=== PATIENT | female | born 1930 | race Caucasian/White ===

== ENCOUNTER 2016-10-26 08:32 | Inpatient (IN) ==
[2016-10-26] MEDS ORDERED: LIDOCAINE 1%/EPI INJ 20 ML VIAL ONE ×2 (08:44→08:51)
[2016-10-26] MEDS ORDERED: ONDANSETRON 4 MG/2 ML VIAL ONE (09:18)
--- NOTE | 2016-10-26 09:28 | Emergency Department Note ---
Narda Young Hilary, am scribing for, and in the presence of, Brad Villavicencio MD 09: 03. Maye Young James D, MD, personally performed the services described in this documentation, ascribed by Keena Laboy in my presence, and it is both accurate and complete 923 . Arrival - Arrival Chief Complaint: Fall ED Nursing Triage Note: c/o fall with left forehead avulsion that happened today. estimated loss of 1-2L of blood. given 200ml NS bolus per ems Mode of Arrival: Stretcher Limitations: No Limitations Source: Patient, Family (Son), EMS, RN Notes Reviewed Time Seen by Provider: 10/26/16 08:38 - History of Present Illness HPI Narrative: Pt is a 86y/o white female brought into the ED with c/o a fall with left forehead avulsion which happened sometime lastnight or this morning. Pts son states that he woke up at 0700 and found blood in the bathroom trailing back to her bedroom where he found her bleeding in her bed. EMS estimates that she lost 1-2L of blood and she was given 200mL NS bolus in EMS. Pt confirms that her neck and back hurt and she thinks she fell in the hallway. Pt has a history of falling and her son states that she has been in the ED 3 times in 2 years for falls like this. Onset (ago): hour(s) Consistency: constant Severity: severe Severity scale (1-10): 6 Allergies/Adverse Reactions: Allergies Allergy/AdvReac Type Severity Reaction Status Date / Time No Known Allergies Allergy Verified 02/05/16 13:56 Home Medications: Home Medications Medication Instructions Recorded Confirmed Type Benztropine Tab [Cogentin Tab] 1 mg PO QPM 11/24/14 10/26/16 History Calcium Carbonate [Calcium] 1,500 mg PO DAILY 11/24/14 10/26/16 History Fluoxetine HCl 20 mg PO QAM 11/24/14 10/26/16 History Glucosamine 500 mg PO BID 11/24/14 10/26/16 History Haloperidol 2 mg PO BID 11/24/14 10/26/16 History Hydrochlorothiazide 12.5 mg PO QAM 11/24/14 10/26/16 History Indapamide [Lozol] 2.5 mg PO QAM 11/24/14 10/26/16 History Multivitamin [Multivitamins] 1 each PO DAILY 11/24/14 10/26/16 History [place]-3 Fatty Acids [Fish Oil] 300 mg PO BID 11/24/14 10/26/16 History Potassium Chloride [Klor-Con M10] 10 meq PO BID 11/24/14 10/26/16 History cloNIDine HCl [Clonidine HCl] 0.1 mg PO BID 11/24/14 10/26/16 History dilTIAZem HCl [Diltiazem 24Hr Cd] 300 mg PO BID 11/24/14 10/26/16 History hydrOXYzine HCL TAB [Atarax Tab] 25 mg PO BID 11/24/14 10/26/16 History Review of System - Review of System 12 point system: reviewed and no additional remarkable complaints except as stated - Review of System Constitutional: Absent: fever Musculoskeletal: Present: back pain, neck pain, upper back pain. Absent: lower back pain Skin: Present: other (Left temporal lobe laceration) Medical,Surgical,& Family Hx - Medical History Cardio: History of: Hypertension Psychological: History of: Bipolar Disorder, Schizophrenia - Social History Smoking Status: Never smoker Frequency of Alcohol Use: None Type of Drug Use: None Exam Physical Examination: GENERAL: This is a well-nourished, well-developed female in no apparent distress. VITAL SIGNS: Temperature: 97.0 Pulse: 89 Respiratory: 18 Blood Pressure: 114/60 O2SAT: 98 HEENT: Patient has a 15 cm laceration involving the left forehead and frontal scalp. Pupils are equally round and reactive to light. Extraocular movement are intact. Oropharynx is benign with moist mucous membranes. NECK: Neck is soft and supple without tenderness. There are no masses. There is no lymphadenopathy. LUNGS: Lungs are clear to auscultation bilaterally. Chest rises symmetrically. There is no chest wall tenderness. CV: Heart is regular rate and rhythm without murmurs, rubs, or gallops. ABDOMEN:Abdomen is soft, non-tender to palpation. There are no abnormal masses palpated. There is no organomegaly. Bowel sounds are present and active. SKIN: Skin is warm and dry. No rash. EXTREMITIES: Patient has full range of motion without tenderness. There is no pedal edema. NEUROLOGIC: Awake, alert, and oriented x4. Cranial nerves II through XII are grossly intact. There are no motorsensory deficits. PSYCHIATRIC: Normal affect. Normal mood. Vital Signs: Vital Signs Temperature 97.0 F L 10/26/16 08:47 Pulse Rate 89 10/26/16 08:47 Respiratory Rate 18 10/26/16 08:47 Blood Pressure 114/60 10/26/16 08:47 O2 Sat by Pulse Oximetry 98 10/26/16 08:47 Course - Consultations Consultation #1: Discussed with Dr. damico. He will see the patient in the emergency department. Time: 11:13 Consultation #2: Discussed with Dr. Cruz. He will admit the patient for observation and repeat H&H. Patient may need to undergo transfusion due to large volume of blood lost. Initial orders written for him. He will assume care upon patient' s arrival to the [facility]. Time: 11:13 Procedures - Laceration Laceration 1 Site: face Side (If applicable): left Size (cm): 10 Description: flap Depth: involves muscle layer Local Anesthetic: lidocaine 1%, with epi Amount of Anesthesia Used (mL): 10 Pre-repair: wound explored, wound cleansed Skin layer closed with: nylon Size: 4-0 Number of sutures: 13 Technique: simple, interrupted Subcutaneous layer closed with: vicryl Size: 3-0 Number of sutures: 4 (Hemostasis obtained following ligation of arterial bleed at the most lateral edge of wound.) Technique: simple, interrupted Muscle layer closed with: vicryl Laceration 2 Site: scalp Side (If applicable): left Size (cm): 5 Description: flap Depth: simple, single layer Local Anesthetic: lidocaine 1%, with epi Amount of Anesthesia Used (mL): 6 Pre-repair: wound explored Skin layer closed with: nylon Size: 3-0 Results - Labs CBC & BMP: 10/26/16 09:11 10/26/16 09:11 Lab Results: I have reviewed the patients labs Labs: Laboratory Tests 10/26/16 09:11 WBC 20.6 H RBC 3.53 L Hgb 10.8 L Hct 32.0 L Neut % (Auto) 76.5 H Lymph % (Auto) 18.2 L Neut # (Auto) 15.7 H Laboratory Tests 10/26/16 10/26/16 09:11 09:11 Segmented Neutrophils 89 H Lymphocytes 10 L Monocytes 1 L Sodium 138 Potassium 3.1 L Glucose 249 H - Diagnostic Findings Procedure: CT: image reviewed by me (CT head: No acute intracranial lesion or hemorrhage. Cerebral atrophy is present. CT scan of the cervical spine: No evidence of fracture or subluxation. Multilevel DDD is present. CT of the thoracic spine: Multilevel DDD, no fracture or subluxation. CT of the lumbosacral spine: Old compression fractures of L1 and L3, L4. Multilevel DDD) Disposition Clinical Impression: Fall at home, Complex laceration of face, Scalp laceration, Anemia, Multilevel DDD of spine Case discussed with: patient, patient's family Disposition: Still a Patient Condition: Stable
[2016-10-26 09:33] LABS: Basophils # 0.1 10*3/uL (0.0-0.2); Basophils % 0.3 % (0.0-0.8); Eosinophils % 0.2 % (0.00-10.9); Hemoglobin 10.8 GM/DL (12.0-16.0); Immature Granulocytes % 0.9 %; Immature Granulocytes Absolute 0.19 #; Lymphocytes # 3.7 10*3/uL (1.4-4.0); Lymphocytes % 18.2 % (21.3-54.2); Mean Corpuscular HGB Conc 33.8 GM/DL (32-36); Mean Corpuscular Hemoglobin 31 PG (27-34); Mean Corpuscular Volume 90.7 FL (87-102); Mean Platelet Volume 10.1 FL (9.6-12.0); Monocytes # 0.8 10*3/uL (0.11-0.8); Monocytes % 3.9 % (1.7-12.7); Neutrophils # 15.7 10*3/uL (1.4-7.4); Neutrophils % 76.5 % (38.7-73.9); Platelet Count 312 T/CUMM (130-400); Red Blood Count 3.53 MC/CUMM (3.8-5.5); Red Cell Distribution Width 13.5 % (9.3-17.3); White Blood Count 20.6 T/CUMM (4-12)
[2016-10-26] MEDS ORDERED: ONDANSETRON 4 MG/2 ML VIAL IV STA (09:36)
[2016-10-26] MEDS ORDERED: SODIUM CHLORIDE 0.9% 1,000 ML IV STA (09:37)
[2016-10-26 09:51] LABS: Lymphocytes 10 % (20-55); Segmented Neutrophils 89 % (50-85); Total Cells Counted 100
[2016-10-26 09:52] LABS: Hypochromasia Slight; Macrocytosis 1+; Osmolality,Calculated 282.7 MOS/KG (273-304); Potassium 3.1 MMOL/L (3.5-5.1)
--- NOTE | 2016-10-26 10:25 | CT Report ---
History: Head injury related to fall. Left forehead and avulsion Date: 10/26/2016 Study: CT head without contrast Comparison exam: CT head February 05, [address] sections were obtained through the head without IV contrast. This CT exam was performed using one or more the following dose reduction techniques: Automated exposure control, adjustment of the MA and/or KV according to patient size, or use of iterative reconstruction technique. There is no acute abnormality of the bony calvarium. There is laceration of the left frontal scalp soft tissues with associated soft tissue emphysema. There is some mild diffuse cerebral and cerebellar atrophy. The ventricles are midline in position without evidence of hydrocephalus. There is no brain mass or parenchymal hemorrhage. There is no gross CT evidence of acute cortical stroke. There is no acute extra-axial hematoma. There is some ill-defined low density in the periventricular white matter without mass effect compatible with changes of small vessel disease. There is an area of chronic lacunar ischemia involving the anterior aspect of the right thalamus and genu of the right internal capsule. There is chronic lacunar infarction in the posterior right putamen. There is prominent distal carotid artery calcification. Impression: Acute soft tissue injury of the left frontal scalp with laceration. No acute intracranial process. Chronic ischemic changes. Cerebral atrophy and cerebellar atrophy PROCEDURE INTERPRETED AT [facility] DEPARTMENT OF RADIOLOGY Final Report Signed by: Dr. Alma Orellana
--- NOTE | 2016-10-26 10:32 | CT Report ---
History: Neck pain after fall Date: 10/26/2016 Study: CT cervical spine without contrast Comparison exam: Multiple studies, including the most recent CT cervical spine of February 05, 2016 There is chronic mild 2 to 3 mm anterior subluxation of C3 with respect to C4, unchanged from the previous studies. There is no acute fracture or new area of subluxation. There is moderate prominent degenerative disc narrowing at C3-C4 through C6-C7, with mild to moderate anterior spondylosis. There is scattered prominent facet hypertrophy. There is mild narrowing of the spinal canal at C3-C4 related to mild posterior diffuse bulging disc and osteophyte; there is moderate to prominent left and [id number] right neural foraminal narrowing at this same level related to uncovertebral and facet hypertrophy. There is mild narrowing of the spinal canal related to mild posterior bulging disc and osteophyte at C6-C7; there is mild to moderate right greater than left neural foraminal narrowing related to uncovertebral and facet hypertrophy at this level. There is no gross disc extrusion. 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 Impression: No acute bony abnormality. Degenerative disc disease. Mild chronic subluxation at C3-C4 which is unchanged from the most recent comparison exam. Substernal extension of goiter PROCEDURE INTERPRETED AT [facility] DEPARTMENT OF RADIOLOGY Final Report Signed by: Dr. Alma Orellana
[2016-10-26] MEDS ORDERED: POTASSIUM CHLORIDE 20 MEQ TABLET PO STA (10:36)
--- NOTE | 2016-10-26 10:40 | CT Report ---
History: Back pain after fall Date: 10/26/2016 Study: CT thoracic spine without IV contrast Comparison exam: No previous thoracic level CT Thin spiral CT sections were obtained through the thoracic spine without IV contrast. Multiplanar reconstruction images are also evaluated. This CT exam was performed using one or more the following dose reduction techniques: Automated exposure control, adjustment of the MA and/or KV according to patient size, or use of iterative reconstruction technique. There is no definite acute thoracic fracture. There is mild central depression of the superior endplates of the T3-T9 vertebrae which is likely chronic. There are scattered mild to moderate thoracic spondylosis and mild to moderate thoracic degenerative disc narrowing. Please refer to the CT lumbar spine exam from the same day for information regarding a compression fracture involving the L1 vertebral body. There is no gross thoracic level disc extrusion or high-grade spinal stenosis. There is evidence of substernal extension of the right lobe of thyroid, with extension of goiter dorsal and right lateral to the trachea at the level of aortic arch. Impression: No acute thoracic fracture. Degenerative disc disease of the thoracic spine. Chronic central depression of the superior endplates of numerous thoracic vertebrae. Please refer to the CT lumbar spine from the same day for information regarding L1 compression fracture PROCEDURE INTERPRETED AT [facility] DEPARTMENT OF RADIOLOGY Final Report Signed by: Dr. Alma Orellana
--- NOTE | 2016-10-26 10:50 | CT Report ---
History: Back pain after fall Date: 10/26/2016 Study: CT lumbar spine without contrast Comparison exam: No previous CT or x-ray of the lumbar spine available Thin spiral CT sections were obtained through the lumbar spine without IV contrast. Multiplanar reconstruction images are also evaluated. This CT exam was performed using one or more the following dose reduction techniques: Automated exposure control, adjustment of the MA and/or KV according to patient size, or use of iterative reconstruction technique. There is moderate compression of the L1, L3, and L4 vertebral bodies of uncertain chronicity, with retropulsion measuring 3 to 4 mm at each of these levels. There is no spondylolisthesis. There are scattered moderate spondylosis. There is moderate degenerative disc narrowing with vacuum disc phenomena at L4-L5. There is prominent disc narrowing with mild vacuum disc phenomena at L5-S1. There is mild spinal stenosis at L2-L3 related to mild posterior bulging disc. There is moderate to severe spinal stenosis at L3-L4 related to posterior mild diffuse disc bulging as well as moderate ligament flavum and facet hypertrophy. There is severe narrowing of the spinal canal at L4-L5 related to moderate posterior diffuse disc bulging as well as prominent hypertrophic changes of the posterior elements. There is mild spinal canal narrowing at L5-S1 related to mild posterior diffuse bulging discs and osteophyte as well as moderate ligamentum flavum and facet hypertrophy. Impression: Compression fractures of L1, L3, and L4 with mild 3 to 4 mm retropulsion at each of these levels. These could represent acute or recent compression fractures, though the chronicity cannot be stated with certainty. Follow-up outpatient MRI could provide clarification regarding the chronicity of these fractures, as felt clinically necessary. Multilevel spinal stenosis related to diffuse disc bulging and hypertrophic changes of the posterior elements, details above. Degenerative disc disease PROCEDURE INTERPRETED AT [facility] DEPARTMENT OF RADIOLOGY Final Report Signed by: Dr. Alma Orellana
--- NOTE | 2016-10-26 11:36 | General Surgery Consult Note ---
Assessment and Plan (1) Fall at home Status: Acute Assessment and plan: This patient had a scalp laceration that was closed in the ER. She does appear pale but her hemoglobin is 10.8 and she is hemodynamically normal. This probably does not represent her true hemoglobin as it will trend down over time all her body equilibrates. I recommend repeating hemoglobin again tomorrow and making sure she has a type and screen in case she needs a transfusion. I will leave this up to her primary physician. The patient has some lumbar spine compression fractures of uncertain chronicity. The total pain care physicians have been very helpful in this situation managing these compression fractures and because the patient is tender I would assume these are acute. She has no neurologic compromise and these are stable fractures as I think it is fine to go ahead and admit her and get them to see her while she is here if this is okay with her primary physician. Current Visit: Yes History of Present Illness Chief complaint: Fall from standing with head laceration and low back pain History of present illness: Ms. Orona is a 86 year old female who has had multiple falls in the last 2 years and has required multiple suturing of her scalp lacerations and presents to the ER today after a fall at home with passing out during the fall. She had some blood loss at the scene and had a scalp laceration repaired by the ER physician. Her head CT was negative for intracranial hemorrhage. She did have some lumbar spine fractures compression fractures of uncertain chronicity and she is having some pain there. Her cervical collar was cleared before I saw her and her cervical CT showed no acute injuries. Her hemoglobin was around 10 and she is hemodynamically normal lying in bed. She did have a white blood cell count of 20,000. Home Medications Medication Instructions Recorded Confirmed Type Benztropine Tab [Cogentin Tab] 1 mg PO QPM 11/24/14 10/26/16 History Calcium Carbonate [Calcium] 1,500 mg PO DAILY 11/24/14 10/26/16 History Fluoxetine HCl 20 mg PO QAM 11/24/14 10/26/16 History Glucosamine 500 mg PO BID 11/24/14 10/26/16 History Haloperidol 2 mg PO BID 11/24/14 10/26/16 History Hydrochlorothiazide 12.5 mg PO QAM 11/24/14 10/26/16 History Indapamide [Lozol] 2.5 mg PO QAM 11/24/14 10/26/16 History Multivitamin [Multivitamins] 1 each PO DAILY 11/24/14 10/26/16 History [place]-3 Fatty Acids [Fish Oil] 300 mg PO BID 11/24/14 10/26/16 History Potassium Chloride [Klor-Con M10] 10 meq PO BID 11/24/14 10/26/16 History cloNIDine HCl [Clonidine HCl] 0.1 mg PO BID 11/24/14 10/26/16 History dilTIAZem HCl [Diltiazem 24Hr Cd] 300 mg PO BID 11/24/14 10/26/16 History hydrOXYzine HCL TAB [Atarax Tab] 25 mg PO BID 11/24/14 10/26/16 History Allergies Allergy/AdvReac Type Severity Reaction Status Date / Time No Known Allergies Allergy Verified 02/05/16 13:56 Medical,Surgical,& Family Hx - Medical History Cardio: History of: Hypertension Psychological: History of: Bipolar Disorder, Schizophrenia - Social History Smoking Status: Never smoker Frequency of Alcohol Use: None Type of Drug Use: None - Constitutional Constitutional: Present: as per HPI - EENT Nose, mouth and throat: Present: as per HPI - Cardiovascular Cardiovascular: Present: as per HPI - Respiratory Respiratory: Present: as per HPI - Gastrointestinal Gastrointestinal: Present: as per HPI - Genitourinary Genitourinary: Present: as per HPI - Musculoskeletal Musculoskeletal: Present: as per HPI - Neurological Neurological: Present: as per HPI - Endocrine Endocrine: Present: as per HPI Hematologic/Lymphatic: Present: as per HPI Exam - Constitutional Vitals: Period Temp Pulse Resp BP Sys/[place] Pulse Ox Last 24 Hr 97.0 F-97.0 F 89-89 18-18 114-114/60-60 98 General appearance: normal weight, no acute distress - Head Head exam: Present: laceration, other (There is a laceration on the frontal scalp that has already been closed. It appears clean with no hematoma or active bleeding. There is no erythema.) - Eye Eye exam: Present: EOMI Pupils: Present: RAJEEV - ENT ENT exam: Present: normal exam Mouth exam: Present: normal external inspection, normal voice - Neck Neck exam: Present: normal inspection, trachea midline - Respiratory Respiratory exam: Present: clear to auscultation bilaterally. Absent: accessory muscle use, chest wall tenderness - Cardiovascular Cardiovascular exam: Present: RRR. Absent: systolic murmur, tachycardia - GI/Abdominal GI/Abdominal exam: Present: soft. Absent: tenderness, rebound - Extremities Exam Extremities exam: Present: normal inspection, normal capillary refill - Neurological Exam Neurological exam: Present: alert, oriented X3 Speech: Present: normal - Skin Skin exam: Present: normal color, warm Results - Labs CBC & BMP: 10/26/16 09:11 10/26/16 09:11 - Diagnostic Findings Procedure: CT: image reviewed by me, report reviewed by me
[2016-10-26] MEDS ORDERED: POTASSIUM CHLORIDE 20 MEQ TABLET PO ONE (11:58)
[2016-10-26] MEDS ORDERED: ONDANSETRON 4 MG/2 ML VIAL IV PRN (13:33)
[2016-10-26] MEDS ORDERED: ACETAMINOPHEN 325 MG TABLET PO PRN (13:33)
[2016-10-26] MEDS: SODIUM CHLORIDE 0.9% 1,000 ML IV SCH ×2 (14:25→22:28)
[2016-10-26 14:59] LABS: Basophils % 0.2 % (0.0-0.8); Eosinophils % 0.1 % (0.00-10.9); Hematocrit 30.6 VOL% (35.7-47.0); Hemoglobin 10.5 GM/DL (12.0-16.0); Immature Granulocytes % 0.9 %; Immature Granulocytes Absolute 0.17 #; Lymphocytes # 2.3 10*3/uL (1.4-4.0); Lymphocytes % 12.2 % (21.3-54.2); Mean Corpuscular HGB Conc 34.3 GM/DL (32-36); Mean Corpuscular Hemoglobin 31 PG (27-34); Mean Corpuscular Volume 89.7 FL (87-102); Mean Platelet Volume 10.1 FL (9.6-12.0); Monocytes # 0.9 10*3/uL (0.11-0.8); Monocytes % 4.7 % (1.7-12.7); Neutrophils # 15.5 10*3/uL (1.4-7.4); Neutrophils % 81.9 % (38.7-73.9); Platelet Count 296 T/CUMM (130-400); Red Blood Count 3.41 MC/CUMM (3.8-5.5); Red Cell Distribution Width 13.4 % (9.3-17.3)
[2016-10-26] MEDS: FLUoxetine 20 MG CAPSULE PO SCH (15:43)
--- NOTE | 2016-10-26 19:55 | Family Practice History&Phys ---
Assessment and Plan (1) Large left scalp laceration Status: Acute Assessment and plan: Patient has a repaired large laceration to the left frontal region scalp. Has area of ecchymosis surrounding the laceration. Current Visit: Yes (2) Head trauma secondary to fall Status: Acute Assessment and plan: Patient received head trauma and laceration secondary to fall. Will monitor closely Current Visit: Yes (3) compressions Fx lumbar spine Status: Acute Assessment and plan: As compression fracture L1 L3-L4 lumbar spine of unknown age. She denies any significant pain at the time of my evaluation. Will ambulate in a.m. and if pain is significant we will obtain a MRI. Current Visit: Yes (4) Hypertension Status: Chronic Assessment and plan: Stable to present Current Visit: Yes (5) Schizophrenia Status: Chronic Assessment and plan: Stable at present Current Visit: Yes History of Present Illness Chief complaint: Fall with large laceration to the scalp History of present illness: Ms. Orona is a 86 year old female Pt is a 86y/o white female brought into the ED with c/o a fall with left forehead avulsion which happened sometime last night or this morning. Pts son states that he woke up at 0700 and found blood in the bathroom trailing back to her bedroom where he found her bleeding in her bed. EMS estimates that she lost 1-2L of blood and she was given 200mL NS bolus in EMS. Pt confirms that her neck and back hurt and she thinks she fell in the hallway. Pt has a history of falling and her son states that she has been in the ED 3 times in 2 years for falls like this. She had complained of some pain in her neck and back so x- rays and CT scans were performed. There are compression fractures at L1 L3 and L4 of unknown age. At the time of my evaluation the patient states the pain was not significant. If her pain increases as we ambulate may need to do MRI. Will admit for close observation and therapy. Will monitor hemoglobin and hematocrit closely. Home Medications Medication Instructions Recorded Confirmed Type Benztropine Tab [Cogentin Tab] 1 mg PO BEDTIME 11/24/14 10/26/16 History Fluoxetine HCl 20 mg PO DAILY 11/24/14 10/26/16 History Glucosamine 500 mg PO BID 11/24/14 10/26/16 History Haloperidol 2 mg PO BID 11/24/14 10/26/16 History Hydrochlorothiazide 12.5 mg PO DAILY 11/24/14 10/26/16 History Indapamide [Lozol] 2.5 mg PO DAILY 11/24/14 10/26/16 History Multivitamin [Multivitamins] 1 each PO DAILY 11/24/14 10/26/16 History Potassium Chloride [Klor-Con M10] 10 meq PO BID 11/24/14 10/26/16 History cloNIDine HCl [Clonidine HCl] 0.1 mg PO BID 11/24/14 10/26/16 History dilTIAZem HCl [Diltiazem 24Hr Cd] 300 mg PO DAILY 11/24/14 10/26/16 History hydrOXYzine HCL TAB [Atarax Tab] 25 mg PO BID 11/24/14 10/26/16 History Nabumetone 500 mg PO BID 10/26/16 10/26/16 History [place]-3 Fatty Acids [Fish Oil 1,000 mg PO DAILY 10/26/16 10/26/16 History Concentrate] [place]-3 Fatty Acids [Fish Oil 2,000 mg PO BEDTIME 10/26/16 10/26/16 History Concentrate] Allergies Allergy/AdvReac Type Severity Reaction Status Date / Time No Known Allergies Allergy Verified 02/05/16 13:56 Medical,Surgical,& Family Hx - Medical History Cardio: History of: Hypertension Psychological: History of: Bipolar Disorder, Schizophrenia Endocrine: History of: Dyslipidemia Rheumatology: History of;: Rheumatoid Arthritis (hands knees and toes) Musculoskeletal: No history of: Amputation - Family History Family History: Reports;: Family Heart Disease, Family Hypertension - Social History Smoking Status: Never smoker Frequency of Alcohol Use: None Type of Drug Use: None Marital Status: Lives With:: Children Functional capacity: uses cane/walker Exam - Constitutional Vitals: Period Temp Pulse Resp BP Sys/[place] Pulse Ox Last 24 Hr 97.2 F-98.0 F 99-106 21-21 121-146/73-80 96-97 General appearance: no acute distress - Head Head exam: Present: laceration (Patient has a large repaired laceration to the left frontal region of scalp) - Eye Pupils: Present: RAJEEV - ENT ENT exam: Present: normal exam - Neck Neck exam: Present: normal inspection - Respiratory Respiratory exam: Present: clear to auscultation bilaterally - Cardiovascular Cardiovascular exam: Present: irregular rhythm - GI/Abdominal GI/Abdominal exam: Present: normal bowel sounds, soft - Extremities Exam Extremities exam: Present: normal inspection, full ROM - Back Exam Back exam: Present: other (Some slight tenderness on palpation of the lower cervical and lower lumbar region of spine bilaterally) - Neurological Exam Neurological exam: Present: alert - Psychiatric Psychiatric exam: Present: normal affect - Skin Skin exam: Present: normal color Results - Labs CBC & BMP: 10/26/16 14:46 10/26/16 09:11
[2016-10-26] MEDS ORDERED: cloNIDine 0.1 MG TABLET PO SCH (21:00)
[2016-10-26] MEDS: POTASSIUM CHLORIDE 10 MEQ TABLET PO SCH (21:18)
[2016-10-26] MEDS: DOCUSATE SODIUM 100 MG CAPSULE PO SCH (21:18)
[2016-10-26] MEDS: HALOPERIDOL 1 MG TABLET PO SCH (21:18)
[2016-10-26] MEDS: BENZTROPINE 1 MG TABLET PO SCH (21:19)
[2016-10-26] MEDS: NABUMETONE 500 MG TABLET PO SCH (21:19)
[2016-10-26] MEDS: hydrOXYzine HCL 25 MG TABLET PO SCH (21:19)
[2016-10-27 06:57] LABS: Folate 23.2 NG/ML (5.4-24.0); Magnesium 1.4 MG/DL (1.8-2.4); Osmolality,Calculated 280.5 MOS/KG (273-304); Thyroid Stimulating Hormone 1.6 uIU/ml (0.358-3.74)
[2016-10-27 07:29] LABS: Basophils % 0.3 % (0.0-0.8); Eosinophils # 0.1 10*3/uL (0.0-0.87); Eosinophils % 0.8 % (0.00-10.9); Hematocrit 22.8 VOL% (35.7-47.0); Immature Granulocytes % 0.5 %; Immature Granulocytes Absolute 0.06 #; Lymphocytes # 3.6 10*3/uL (1.4-4.0); Lymphocytes % 33.1 % (21.3-54.2); Mean Corpuscular HGB Conc 34.2 GM/DL (32-36); Mean Corpuscular Hemoglobin 31 PG (27-34); Mean Corpuscular Volume 90.1 FL (87-102); Monocytes # 0.8 10*3/uL (0.11-0.8); Monocytes % 7.4 % (1.7-12.7); Neutrophils # 6.4 10*3/uL (1.4-7.4); Neutrophils % 57.9 % (38.7-73.9); Red Cell Distribution Width 13.6 % (9.3-17.3)
[2016-10-27 07:32] LABS: Hemoglobin 7.8 GM/DL (12.0-16.0); Platelet Count 190 T/CUMM (130-400); Red Blood Count 2.53 MC/CUMM (3.8-5.5)
[2016-10-27] MEDS ORDERED: SODIUM CHLORIDE 0.9% 250 ML IV PRN (07:57)
--- NOTE | 2016-10-27 08:04 | Family Practice Progress Note ---
Family Practice - PN: Subj Interval history: Patient generally is doing well. She denies any new complaints. Blood pressures have been elevated since admission .she denies any back pain or other new areas of pain. that would go against the changes seen on x-ray being acute. Her a.m. hemoglobin has decreased to 7.8 with hematocrit of 22.8. We will need to transfuse this a.m.. Discussed this with patient. Will also consult physical therapy to ambulate. We will continue close observation Exam (Progress Note) - Constitutional Vitals: Period Temp Pulse Resp BP Sys/Calhoun Pulse Ox Last 24 Hr 97.2 F-99.7 F 78-106 18-21 121-185/70-105 94-97 Results - Labs CBC & BMP: 10/27/16 07:14 10/27/16 05:49 Assessment and Plan (1) Large left scalp laceration Status: Acute Assessment and plan: Patient has a repaired large laceration to the left frontal region scalp. Has area of ecchymosis surrounding the laceration. Current Visit: Yes (2) Head trauma secondary to fall Status: Acute Assessment and plan: Patient received head trauma and laceration secondary to fall. Will monitor closely Current Visit: Yes (3) compressions Fx lumbar spine Status: Acute Assessment and plan: As compression fracture L1 L3-L4 lumbar spine of unknown age. She denies any significant pain at the time of my evaluation. Will ambulate in a.m. and if pain is significant we will obtain a MRI. Current Visit: Yes (4) Hypertension Status: Chronic Assessment and plan: Stable to present Current Visit: Yes (5) Schizophrenia Status: Chronic Assessment and plan: Stable at present Current Visit: Yes
--- NOTE | 2016-10-27 09:19 | General Surgery Progress Note ---
Assessment and Plan (1) Fall at home Status: Acute Assessment and plan: The patient's tertiary survey reveals no further injuries and no further workup is needed. Please call back with any further questions. Current Visit: Yes Subjective Patient reports: Present: no new complaints, feels better, afebrile Narrative: The patient is no longer having back pain Exam - Constitutional General appearance: normal weight, no acute distress - Head Head exam: Present: normocephalic, laceration (The laceration is cleaned and repaired) - Eye Eye exam: Present: EOMI Pupils: Present: RAJEEV - ENT ENT exam: Present: normal exam Mouth exam: Present: normal external inspection, normal voice - Neck Neck exam: Present: normal inspection, trachea midline - Respiratory Respiratory exam: Present: clear to auscultation bilaterally. Absent: accessory muscle use, chest wall tenderness - Cardiovascular Cardiovascular exam: Present: tachycardia. Absent: irregular rhythm, systolic murmur - GI/Abdominal GI/Abdominal exam: Present: soft. Absent: tenderness, rebound - Extremities Exam Extremities exam: Present: normal inspection, normal capillary refill - Back Exam Back exam: Present: normal inspection - Neurological Exam Neurological exam: Present: alert, oriented X3 Speech: Present: normal - Skin Skin exam: Present: normal color, warm Results - Labs CBC & BMP: 10/27/16 07:14 10/27/16 05:49
[2016-10-27] MEDS: hydroCHLOROthiazide 12.5 MG CAPSULE PO SCH (10:01)
[2016-10-27] MEDS: HALOPERIDOL 1 MG TABLET PO SCH ×2 (10:01→20:38)
[2016-10-27] MEDS: NABUMETONE 500 MG TABLET PO SCH ×2 (10:01→20:38)
[2016-10-27] MEDS: FLUoxetine 20 MG CAPSULE PO SCH (10:01)
[2016-10-27] MEDS: cloNIDine 0.1 MG TABLET PO SCH (10:01)
[2016-10-27] MEDS: hydrOXYzine HCL 25 MG TABLET PO SCH ×2 (10:01→20:38)
[2016-10-27] MEDS: PANTOPRAZOLE 40 MG TABLET PO SCH (10:02)
[2016-10-27] MEDS: DOCUSATE SODIUM 100 MG CAPSULE PO SCH ×2 (10:02→20:37)
[2016-10-27] MEDS: MULTIVITAMIN (CENTRUM) TABLET PO SCH (10:02)
[2016-10-27] MEDS: POTASSIUM CHLORIDE 10 MEQ TABLET PO SCH ×2 (10:02→20:37)
[2016-10-27] MEDS: DILTIAZEM CD 300 MG CAPSULE PO SCH (10:08)
[2016-10-27 19:44] LABS: Apearance,Urine CLEAR (Clear); Bilirubin,Urine Negative (Negative); Blood, Urine Negative (Negative); Glucose,Urine (UA) Negative (Negative); Ketones,Urine Negative (Negative); Nitrite,Urine Negative (Negative); Protein,Urine Negative; Urine Color Straw (Yellow); Urine Specific Gravity 1.005 (1.001-1.035); Urine Urobilinogen < 2.0 EU/DL (0.2-1.0); WBC,Urine <1 /HPF (0-6)
[2016-10-27] MEDS: SODIUM CHLORIDE 0.9% 1,000 ML IV SCH (20:38)
[2016-10-27] MEDS: BENZTROPINE 1 MG TABLET PO SCH (20:38)
[2016-10-28] MEDS: SODIUM CHLORIDE 0.9% 1,000 ML IV SCH ×2 (02:00→11:05)
[2016-10-28 06:30] LABS: Basophils # 0.1 10*3/uL (0.0-0.2); Basophils % 0.5 % (0.0-0.8); Eosinophils # 0.3 10*3/uL (0.0-0.87); Eosinophils % 2.5 % (0.00-10.9); Hematocrit 29.1 VOL% (35.7-47.0); Immature Granulocytes % 0.7 %; Immature Granulocytes Absolute 0.08 #; Lymphocytes # 3.6 10*3/uL (1.4-4.0); Lymphocytes % 29.8 % (21.3-54.2); Mean Corpuscular HGB Conc 34.7 GM/DL (32-36); Mean Corpuscular Hemoglobin 29 PG (27-34); Mean Corpuscular Volume 84.3 FL (87-102); Mean Platelet Volume 10.7 FL (9.6-12.0); Monocytes # 0.8 10*3/uL (0.11-0.8); Monocytes % 6.7 % (1.7-12.7); Neutrophils # 7.3 10*3/uL (1.4-7.4); Neutrophils % 59.8 % (38.7-73.9); Platelet Count 164 T/CUMM (130-400); Red Cell Distribution Width 15.1 % (9.3-17.3); White Blood Count 12.2 T/CUMM (4-12)
[2016-10-28 06:40] LABS: Red Blood Count 3.45 MC/CUMM (3.8-5.5)
[2016-10-28 06:41] LABS: Hemoglobin 10.1 GM/DL (12.0-16.0)
[2016-10-28 06:55] LABS: Calcium 7.9 MG/DL (8.5-10.1); Osmolality,Calculated 275.7 MOS/KG (273-304); Potassium 3.8 MMOL/L (3.5-5.1)
--- NOTE | 2016-10-28 08:17 | Discharge Summary ---
Hospital Course - Hospital Course Hospital Course: Ms. Orona is a 86 year old female Pt is a 86y/o white female brought into the ED with c/o a fall with left forehead avulsion which happened sometime last night or this morning. Pts son states that he woke up at 0700 and found blood in the bathroom trailing back to her bedroom where he found her bleeding in her bed. EMS estimates that she lost 1-2L of blood and she was given 200mL NS bolus in EMS. Pt confirms that her neck and back hurt and she thinks she fell in the hallway. Pt has a history of falling and her son states that she has been in the ED 3 times in 2 years for falls like this. She had complained of some pain in her neck and back so x- rays and CT scans were performed. There are compression fractures at L1 L3 and L4 of unknown age. At the time of my evaluation the patient states the pain was not significant. If her pain increases as we ambulate may need to do MRI. Will admit for close observation and therapy. Will monitor hemoglobin and hematocrit closely. Hospital course-patient in the hospital lab and x-ray studies obtained. The patient was seen in consultation by Dr. Cody in view of the degree of trauma and size of laceration. He concurred with evaluation and treatment. Patient initially had questionable acute lumbar compression fractures but she actually expresses no significant pain which would make me believe that these are probably more chronic. She has had multiple falls over time so no way to date these fractures. But do not require any treatment at present. She lost a significant amount of blood from the laceration. As anticipated on the second hospital day patient required 2 units of packed RBCs. She has been ambulated by physical therapy and is back to her normal level of activity. I have discussed in detail with patient's son. Will discharge patient to home care and have him continue present wound care. She has a scheduled appointment in my office on 04 November and I will have him keep that scheduled appointment. We will have someone call with any problems develop or return to emergency room if condition worsens. Patient stable at time of discharge Diagnosis - Discharge Diagnosis (1) Large left scalp laceration Status: Acute (2) Head trauma secondary to fall Status: Acute (3) compressions Fx lumbar spine Status: Acute (4) Hypertension Status: Chronic (5) Schizophrenia Status: Chronic Discharge Plan - Discharge Data Disposition: Disch To Home/Self Care Condition at Discharge: Stable Discharge Diet: advance to your usual diet Activity: ambulate only with your walker Hygiene: may shower Weight Bearing at Discharge: weight bear as tolerated Contact your physician if you experience:: fever over 101, Nausea/Vomiting, Shortness of breath, Bleeding - Discharge Medications Continue Glucosamine 500 mg PO BID hydrOXYzine HCL TAB [Atarax Tab] 25 mg PO BID Hydrochlorothiazide 12.5 mg PO DAILY Benztropine Tab [Cogentin Tab] 1 mg PO BEDTIME Indapamide [Lozol] 2.5 mg PO DAILY Potassium Chloride [Klor-Con M10] 10 meq PO BID Multivitamin [Multivitamins] 1 each PO DAILY Haloperidol 2 mg PO BID Fluoxetine HCl 20 mg PO DAILY dilTIAZem HCl [Diltiazem 24Hr Cd] 300 mg PO DAILY cloNIDine HCl [Clonidine HCl] 0.1 mg PO BID Nabumetone 500 mg PO BID [place]-3 Fatty Acids [Fish Oil Concentrate] 2,000 mg PO BEDTIME [place]-3 Fatty Acids [Fish Oil Concentrate] 1,000 mg PO DAILY - Follow Up or Referral Follow Up: Klever Cruz DO [Family Provider] - (Patient is to keep her scheduled appointment for 04 November. Son is aware of this and they have a follow-up appointment card already issued. I will plan to remove sutures that time. I have discussed wound care in detail with patient's son) - Forms/Instructions Exam - Constitutional Vitals: Period Temp Pulse Resp BP Sys/Calhoun Pulse Ox Last 24 Hr 97.4 F-98.4 F 63-89 18-22 112-151/54-73 92-96 General appearance: no acute distress - Head Head exam: Present: other (Large healing laceration to the frontal region scalp) - Eye Pupils: Present: RAJEEV - ENT ENT exam: Present: normal exam - Neck Neck exam: Present: normal inspection - Respiratory Respiratory exam: Present: clear to auscultation bilaterally - Cardiovascular Cardiovascular exam: Present: irregular rhythm - GI/Abdominal GI/Abdominal exam: Present: normal bowel sounds, soft - Extremities Exam Extremities exam: Present: normal inspection - Back Exam Back exam: Present: normal inspection - Neurological Exam Neurological exam: Present: altered, other (She is back to her normal neurological and Mental status exam) - Psychiatric Psychiatric exam: Present: flat affect - Skin Skin exam: Present: normal color, other (Patient has a large healing laceration with sutures to the frontal region scalp) Discharge Results Labs on day of discharge: Labs from last 24 hours 10/28/16 10/28/16 10/27/16 05:29 05:29 18:00 WBC 12.2 H RBC 3.45 L D Hgb 10.1 L D Hct 29.1 L MCV 84.3 L MCH 29 MCHC 34.7 RDW 15.1 Plt Count 164 MPV 10.7 Neut % (Auto) 59.8 Lymph % (Auto) 29.8 [place] % (Auto) 6.7 Eos % (Auto) 2.5 Baso % (Auto) 0.5 Neut # (Auto) 7.3 Lymph # (Auto) 3.6 [place] # (Auto) 0.8 Eos # (Auto) 0.3 Baso # (Auto) 0.1 Immature Gran % 0.7 Nucleated RBC % 0.0 Immature Gran # 0.08 Nucleated RBCs # 0.00 Sodium 138 Potassium 3.8 Chloride 105 Carbon Dioxide 26 Anion Gap 10.8 BUN 10 Creatinine 0.80 GFR Calculation 60 BUN/Creatinine Ratio 12.00 Glucose 143 H Calculated Osmolality 275.7 Calcium 7.9 L Urine Color Straw Urine Appearance Clear Urine pH 5.0 Ur Specific [place] 1.005 Urine Protein Negative Urine Glucose (UA) Negative Urine Ketones Negative Urine Blood Negative Urine Nitrate Negative Urine Bilirubin Negative Urine Urobilinogen < 2.0 H Urine Leukocytes Negative Urine WBC <1 Ur Culture Indicated? Not indicated DS: Provider Date of admission: 10/27/16 08:48 Primary care physician: . No PCP Attending physician on admission: Klever Cruz DO Discharging clinician: Klever Cruz DO
[2016-10-28] MEDS: HALOPERIDOL 1 MG TABLET PO SCH (08:35)
[2016-10-28] MEDS: NABUMETONE 500 MG TABLET PO SCH (08:35)
[2016-10-28] MEDS: PANTOPRAZOLE 40 MG TABLET PO SCH (08:36)
[2016-10-28] MEDS: hydroCHLOROthiazide 12.5 MG CAPSULE PO SCH (08:36)
[2016-10-28] MEDS: FLUoxetine 20 MG CAPSULE PO SCH (08:36)
[2016-10-28] MEDS: MULTIVITAMIN (CENTRUM) TABLET PO SCH (08:36)
[2016-10-28] MEDS: POTASSIUM CHLORIDE 10 MEQ TABLET PO SCH (08:36)
[2016-10-28] MEDS: hydrOXYzine HCL 25 MG TABLET PO SCH (08:36)
[2016-10-28] MEDS: DOCUSATE SODIUM 100 MG CAPSULE PO SCH (08:36)
[2016-10-28] MEDS: DILTIAZEM CD 300 MG CAPSULE PO SCH (08:38)
[2016-10-28 08:39] VITALS: BP 119/63
[2016-10-28] MEDS: cloNIDine 0.1 MG TABLET PO SCH (08:39)
--- NOTE | 2016-10-28 16:24 | Physician Query Form ---
CLICK EDIT DOCUMENT TO SELECT QUERY ANSWER --> OK --> SIGN Christina Araya RN Clinical City Assessor W) [phone] (f) [phone] [email or web address] PROVIDERS: Make your selection(s) from the choices in EACH section by typing an "x" and enter comments in the comment section. Please use your independent medical judgment in providing your response. This request does not imply that any particular answer is desired or expected. CLINICAL INDICATORS: (Providers should not edit this section) Based on the documentation of "Acute left forehead laceration" "had some blood loss at the scene" "EMS estimates that she lost 1-2L of blood" "hemoglobin has decreased to 7.8 with hematocrit of 22.8. We will need to transfuse" Transfused 2 units PRBC. Based on the above, could you clarify which of the following conditions you are evaluating, treating, and/or monitoring? ( ) Blood loss anemia ( ) acute ( ) chronic ( ) acute on chronic ( ) Acute blood loss anemia on baseline chronic anemia ( ) Acute blood loss anemia as a complication of a procedure ( ) Iron deficiency anemia not associated with blood loss ( ) Hemolytic anemia ( ) immune ( ) non-immune - please specify cause: ( ) Anemia due to other condition, please specify: ( ) Clinically unable to determine COMMENTS: Use of terms such as suspected, likely, or probable (associated with a specific diagnosis that is being evaluated, monitored, or treated as if it exists) are acceptable and can be restated in the discharge summary if not ruled out. MTDD
== END 2016-10-28 11:20 | disposition home or self-care (01) | DRG 580 ==
LOC: EDBD → EDUNIT# → N.ED 08:32 → N.EDINP 08:32 → N.2E 13:20
PROVIDERS: ADMIT Family Medicine; ATTEND Family Medicine

== ENCOUNTER 2019-06-04 09:30 | Inpatient (IN) ==
[2019-06-04] MEDS ORDERED: ONDANSETRON 4 MG/2 ML VIAL IV STA (10:37)
[2019-06-04] MEDS ORDERED: HYDROmorphone 2 MG/1 ML VIAL IV STA (10:37)
[2019-06-04 11:45] LABS: Basophils % 0.2 % (0.0-0.8); Eosinophils % 0.1 % (0.00-10.9); Hematocrit 41.2 VOL% (35.7-47.0); Hemoglobin 14.1 GM/DL (12.0-16.0); Immature Granulocytes Absolute 0.17 #; Lymphocytes # 0.9 10*3/uL (1.4-4.0); Mean Corpuscular HGB Conc 34.2 GM/DL (32-36); Mean Corpuscular Volume 90.4 FL (87-102); Mean Platelet Volume 10.3 FL (9.6-12.0); Monocytes % 4.3 % (1.7-12.7); Neutrophils % 89.4 % (38.7-73.9); Platelet Count 221 T/CUMM (130-400); Red Blood Count 4.56 MC/CUMM (3.8-5.5); Red Cell Distribution Width 13.5 % (9.3-17.3); White Blood Count 17.7 T/CUMM (4-12)
[2019-06-04 11:50] LABS: PT Patient Result 10.7 SECS (9.6-12.2); Partial Thromboplastin Time 27.3 SECS (20.8-36.0)
[2019-06-04 11:56] LABS: Amorphous Crystals,Urine Occasional /HPF (Few); Apearance,Urine CLEAR (Clear); Bilirubin,Urine Negative (Negative); Blood, Urine Large mg/dL (Negative); Glucose,Urine (UA) 50 mg/dL (Negative); Ketones,Urine 80 mg/dL (Negative); Nitrite,Urine Negative (Negative); Protein,Urine 100 MG/DL; RBC,Urine 18 /HPF (0-4); Squamous Epithelial Cell,Urine Occasional /HPF (0-10); Urine Color Yellow (Yellow); Urine Specific Gravity 1.019 (1.001-1.035); Urine Urobilinogen < 2.0 EU/DL (0.2-1.0); WBC,Urine 1 /HPF (0-6)
[2019-06-04 11:58] LABS: Albumin 3.1 G/DL (3.4-5.0); Bilirubin,Total 1.4 MG/DL (0.2-1.0); Calcium 8.9 MG/DL (8.5-10.1); Osmolality,Calculated 278.8 MOS/KG (273-304); Total Protein 7.8 G/DL (6.4-8.3)
[2019-06-04] MEDS ORDERED: ONDANSETRON 4 MG/2 ML VIAL IV PRN (13:00)
[2019-06-04] MEDS ORDERED: ACETAMINOPHEN 325 MG TABLET PO PRN (13:00)
[2019-06-04] MEDS: SODIUM CHLORIDE 0.9% 1,000 ML IV SCH (15:37)
[2019-06-04] MEDS: DOCUSATE SODIUM 100 MG CAPSULE PO SCH (20:14)
[2019-06-05] MEDS: SODIUM CHLORIDE 0.9% 1,000 ML IV SCH ×2 (03:33→05:38)
[2019-06-05 05:23] LABS: Basophils # 0.1 10*3/uL (0.0-0.2); Basophils % 0.3 % (0.0-0.8); Eosinophils # 0.3 10*3/uL (0.0-0.87); Eosinophils % 1.7 % (0.00-10.9); Hematocrit 37.6 VOL% (35.7-47.0); Hemoglobin 12.8 GM/DL (12.0-16.0); Immature Granulocytes % 0.5 %; Immature Granulocytes Absolute 0.08 #; Lymphocytes % 12.9 % (21.3-54.2); Mean Platelet Volume 10.4 FL (9.6-12.0); Monocytes % 7.1 % (1.7-12.7); Neutrophils % 77.5 % (38.7-73.9); Platelet Count 209 T/CUMM (130-400); Red Blood Count 4.13 MC/CUMM (3.8-5.5); Red Cell Distribution Width 13.7 % (9.3-17.3); White Blood Count 15.1 T/CUMM (4-12)
[2019-06-05 05:38] LABS: Albumin 2.9 G/DL (3.4-5.0); Calcium 8.6 MG/DL (8.5-10.1); Osmolality,Calculated 287.4 MOS/KG (273-304); Total Protein 6.8 G/DL (6.4-8.3)
[2019-06-05] MEDS: DILTIAZEM CD 300 MG CAPSULE PO SCH (08:37)
[2019-06-05] MEDS: cloNIDine 0.1 MG TABLET PO SCH ×2 (08:37→18:24)
[2019-06-05] MEDS: hydroCHLOROthiazide 12.5 MG CAPSULE PO SCH (08:38)
[2019-06-05] MEDS: INDAPAMIDE 2.5 MG TABLET PO SCH (08:39)
[2019-06-05] MEDS ORDERED: ceFAZolin 1,000 MG in SYRINGE 1 EACH IV ONE (09:00)
[2019-06-05] MEDS: OMEGA 3 ACID ETHYL ESTERS 1 GM CAPSULE PO SCH (10:01)
[2019-06-05] MEDS: CALCIUM (CARBONATE) 500 MG TABLET PO SCH (10:01)
[2019-06-05] MEDS: HALOPERIDOL 1 MG TABLET PO SCH ×2 (10:01→20:42)
[2019-06-05] MEDS: MULTIVITAMIN (CENTRUM) TABLET PO SCH (10:01)
[2019-06-05] MEDS: hydrOXYzine HCL 25 MG TABLET PO SCH ×2 (10:01→20:42)
[2019-06-05] MEDS: DOCUSATE SODIUM 100 MG CAPSULE PO SCH ×2 (10:01→20:42)
[2019-06-05] MEDS: MAGNESIUM CHLORIDE 64 MG TABLET PO SCH ×2 (10:02→20:42)
[2019-06-05] MEDS: FLUoxetine 20 MG CAPSULE PO SCH (10:02)
[2019-06-05] MEDS: PANTOPRAZOLE 40 MG TABLET PO SCH (10:02)
[2019-06-05] MEDS ORDERED: BUPIVACAINE SPINAL 0.75% 2 ML AMP SPINAL ONE (11:22)
[2019-06-05] MEDS ORDERED: PHENYLEPHRINE DRIP 20 MG/250 ML PREMIX IV ONE (11:22)
[2019-06-05] MEDS ORDERED: BISACODYL 10 MG SUPP RECTAL PRN (12:12)
[2019-06-05] MEDS ORDERED: LACTULOSE 20 GM/30 ML UDCUP PO PRN (12:12)
[2019-06-05] MEDS ORDERED: diphenhydrAMINE CAP 25 MG CAPSULE PO PRN (12:12)
[2019-06-05] MEDS ORDERED: MAGNESIUM HYDROXIDE SUSP 30 ML UDCUP PO PRN (12:12)
[2019-06-05] MEDS ORDERED: MORPHINE 4 MG/1 ML VIAL IV PRN ×3 (12:12→12:30)
[2019-06-05] MEDS ORDERED: MIDAZOLAM 2 MG/2 ML VIAL ONE (13:35)
[2019-06-05] MEDS ORDERED: KETAMINE 500 MG/10 ML VIAL ONE (13:35)
[2019-06-05] MEDS ORDERED: TRANEXAMIC ACID 1,000 MG/10 ML VIAL ONE (13:35)
[2019-06-05] MEDS ORDERED: LACTATED RINGERS 1,000 ML IV ONE (13:36)
[2019-06-05] MEDS ORDERED: GLYCOPYRROLATE 0.4 MG/2 ML VIAL ONE (13:36)
[2019-06-05] MEDS: BENZTROPINE 1 MG TABLET PO SCH (20:42)
[2019-06-05] MEDS: ceFAZolin 1,000 MG in SYRINGE 1 EACH IV SCH (20:42)
[2019-06-06] MEDS: ceFAZolin 1,000 MG in SYRINGE 1 EACH IV SCH (03:55)
[2019-06-06] MEDS: SODIUM CHLORIDE 0.9% 1,000 ML IV SCH (03:55)
[2019-06-06 04:53] LABS: Basophils % 0.3 % (0.0-0.8); Eosinophils # 0.5 10*3/uL (0.0-0.87); Eosinophils % 3.8 % (0.00-10.9); Hematocrit 31.5 VOL% (35.7-47.0); Hemoglobin 10.5 GM/DL (12.0-16.0); Immature Granulocytes % 0.6 %; Immature Granulocytes Absolute 0.08 #; Lymphocytes # 1.9 10*3/uL (1.4-4.0); Mean Corpuscular HGB Conc 33.3 GM/DL (32-36); Mean Corpuscular Volume 92.1 FL (87-102); Mean Platelet Volume 10.4 FL (9.6-12.0); Monocytes % 8.8 % (1.7-12.7); Neutrophils % 71.5 % (38.7-73.9); Platelet Count 165 T/CUMM (130-400); Red Blood Count 3.42 MC/CUMM (3.8-5.5); Red Cell Distribution Width 13.4 % (9.3-17.3); White Blood Count 12.9 T/CUMM (4-12)
[2019-06-06 05:23] LABS: Osmolality,Calculated 273.1 MOS/KG (273-304)
[2019-06-06] MEDS: FONDAPARINUX 2.5 MG/0.5 ML SYRINGE SUBCUT SCH (05:39)
[2019-06-06] MEDS: INDAPAMIDE 2.5 MG TABLET PO SCH (10:19)
[2019-06-06] MEDS: MAGNESIUM CHLORIDE 64 MG TABLET PO SCH ×2 (10:19→21:48)
[2019-06-06] MEDS: DILTIAZEM CD 300 MG CAPSULE PO SCH (10:20)
[2019-06-06] MEDS: MULTIVITAMIN (CENTRUM) TABLET PO SCH (10:20)
[2019-06-06] MEDS: HALOPERIDOL 1 MG TABLET PO SCH ×2 (10:20→21:18)
[2019-06-06] MEDS: CALCIUM (CARBONATE) 500 MG TABLET PO SCH (10:20)
[2019-06-06] MEDS: DOCUSATE SODIUM 100 MG CAPSULE PO SCH ×2 (10:20→21:18)
[2019-06-06] MEDS: cloNIDine 0.1 MG TABLET PO SCH ×2 (10:21→18:29)
[2019-06-06] MEDS: PANTOPRAZOLE 40 MG TABLET PO SCH (10:21)
[2019-06-06] MEDS: hydrOXYzine HCL 25 MG TABLET PO SCH ×2 (10:22→21:49)
[2019-06-06] MEDS: OMEGA 3 ACID ETHYL ESTERS 1 GM CAPSULE PO SCH (10:23)
[2019-06-06] MEDS: POTASSIUM CHLORIDE RIDER 10 MEQ in PREMIX 1 EACH IV SCH ×2 (10:25→13:52)
[2019-06-06] MEDS: FLUoxetine 20 MG CAPSULE PO SCH (10:26)
[2019-06-06] MEDS: hydroCHLOROthiazide 12.5 MG CAPSULE PO SCH (10:26)
[2019-06-06] MEDS ORDERED: POTASSIUM CHLORIDE RIDER 10 MEQ in PREMIX 1 EACH IV ONE (14:00)
[2019-06-06] MEDS: BENZTROPINE 1 MG TABLET PO SCH (21:48)
[2019-06-07] MEDS: FONDAPARINUX 2.5 MG/0.5 ML SYRINGE SUBCUT SCH (06:20)
[2019-06-07 06:41] LABS: Basophils % 0.3 % (0.0-0.8); Eosinophils # 0.2 10*3/uL (0.0-0.87); Eosinophils % 1.3 % (0.00-10.9); Hematocrit 29.7 VOL% (35.7-47.0); Immature Granulocytes % 0.8 %; Mean Corpuscular HGB Conc 33.7 GM/DL (32-36); Mean Corpuscular Volume 90.8 FL (87-102); Mean Platelet Volume 11.4 FL (9.6-12.0); Monocytes % 12.8 % (1.7-12.7); Neutrophils % 68.8 % (38.7-73.9); Platelet Count 148 T/CUMM (130-400); Red Blood Count 3.27 MC/CUMM (3.8-5.5); Red Cell Distribution Width 13.2 % (9.3-17.3); White Blood Count 12.3 T/CUMM (4-12)
[2019-06-07 07:07] LABS: Calcium 8.4 MG/DL (8.5-10.1); Osmolality,Calculated 271.4 MOS/KG (273-304)
[2019-06-07] MEDS: MAGNESIUM CHLORIDE 64 MG TABLET PO SCH ×2 (09:49→21:07)
[2019-06-07] MEDS: hydrOXYzine HCL 25 MG TABLET PO SCH ×2 (09:49→21:07)
[2019-06-07] MEDS: FLUoxetine 20 MG CAPSULE PO SCH (09:49)
[2019-06-07] MEDS: HALOPERIDOL 1 MG TABLET PO SCH ×2 (09:49→21:07)
[2019-06-07] MEDS: hydroCHLOROthiazide 12.5 MG CAPSULE PO SCH (09:49)
[2019-06-07] MEDS: DILTIAZEM CD 300 MG CAPSULE PO SCH (09:50)
[2019-06-07] MEDS: MULTIVITAMIN (CENTRUM) TABLET PO SCH (09:50)
[2019-06-07] MEDS: CALCIUM (CARBONATE) 500 MG TABLET PO SCH (09:50)
[2019-06-07] MEDS: INDAPAMIDE 2.5 MG TABLET PO SCH (09:50)
[2019-06-07] MEDS: OMEGA 3 ACID ETHYL ESTERS 1 GM CAPSULE PO SCH (09:51)
[2019-06-07] MEDS: PANTOPRAZOLE 40 MG TABLET PO SCH (09:51)
[2019-06-07] MEDS: DOCUSATE SODIUM 100 MG CAPSULE PO SCH ×2 (09:51→21:06)
[2019-06-07] MEDS: cloNIDine 0.1 MG TABLET PO SCH ×2 (09:51→18:43)
[2019-06-07] MEDS: POTASSIUM CHLORIDE RIDER 10 MEQ in PREMIX 1 EACH IV SCH ×3 (09:52→13:39)
[2019-06-07] MEDS: BENZTROPINE 1 MG TABLET PO SCH (21:07)
[2019-06-08 05:48] LABS: Calcium 8.3 MG/DL (8.5-10.1); Osmolality,Calculated 277.1 MOS/KG (273-304)
[2019-06-08] MEDS: FONDAPARINUX 2.5 MG/0.5 ML SYRINGE SUBCUT SCH (05:48)
[2019-06-08] MEDS: POTASSIUM CHLORIDE RIDER 10 MEQ in PREMIX 1 EACH IV SCH ×3 (08:12→11:07)
[2019-06-08] MEDS: DILTIAZEM CD 300 MG CAPSULE PO SCH (09:36)
[2019-06-08] MEDS: HALOPERIDOL 1 MG TABLET PO SCH (09:36)
[2019-06-08] MEDS: MULTIVITAMIN (CENTRUM) TABLET PO SCH (09:37)
[2019-06-08] MEDS: DOCUSATE SODIUM 100 MG CAPSULE PO SCH (09:37)
[2019-06-08] MEDS: MAGNESIUM CHLORIDE 64 MG TABLET PO SCH (09:37)
[2019-06-08] MEDS: OMEGA 3 ACID ETHYL ESTERS 1 GM CAPSULE PO SCH (09:37)
[2019-06-08] MEDS: FLUoxetine 20 MG CAPSULE PO SCH (09:37)
[2019-06-08] MEDS: PANTOPRAZOLE 40 MG TABLET PO SCH (09:38)
[2019-06-08] MEDS: hydroCHLOROthiazide 12.5 MG CAPSULE PO SCH (09:38)
[2019-06-08] MEDS: hydrOXYzine HCL 25 MG TABLET PO SCH (09:38)
[2019-06-08] MEDS: CALCIUM (CARBONATE) 500 MG TABLET PO SCH (09:39)
[2019-06-08] MEDS: cloNIDine 0.1 MG TABLET PO SCH (09:39)
[2019-06-08] MEDS: INDAPAMIDE 2.5 MG TABLET PO SCH (09:40)
[2019-06-08 11:52] VITALS: BP 126/55
== END 2019-06-08 12:55 | disposition swing bed (61) | DRG 470 ==
LOC: EDUNIT# → EDBD → N.ED 09:30 → N.EDINP 10:42 → N.3E 11:20
PROVIDERS: ADMIT Family Medicine; ATTEND Family Medicine

== ENCOUNTER 2019-06-11 16:05 | Inpatient (IN) ==
[2019-06-11] MEDS ORDERED: HYDROmorphone 2 MG/1 ML VIAL IV PRN (17:17)
[2019-06-11] MEDS ORDERED: ONDANSETRON 4 MG/2 ML VIAL IV PRN (17:17)
[2019-06-11] MEDS ORDERED: SODIUM CHLORIDE 0.45% 1,000 ML IV SCH (17:30)
[2019-06-11 19:06] LABS: Basophils % 0.2 % (0.0-0.8); Eosinophils % 0.1 % (0.00-10.9); Hematocrit 31.5 VOL% (35.7-47.0); Hemoglobin 10.6 GM/DL (12.0-16.0); Immature Granulocytes % 0.8 %; Immature Granulocytes Absolute 0.13 #; Lymphocytes # 1.7 10*3/uL (1.4-4.0); Lymphocytes % 10.6 % (21.3-54.2); Mean Corpuscular HGB Conc 33.7 GM/DL (32-36); Mean Corpuscular Volume 90.8 FL (87-102); Mean Platelet Volume 10.1 FL (9.6-12.0); Neutrophils % 82.3 % (38.7-73.9); Platelet Count 378 T/CUMM (130-400); Red Blood Count 3.47 MC/CUMM (3.8-5.5); Red Cell Distribution Width 13.4 % (9.3-17.3); White Blood Count 15.6 T/CUMM (4-12)
[2019-06-11 19:26] LABS: Albumin 2.1 G/DL (3.4-5.0); Bilirubin,Total 0.7 MG/DL (0.2-1.0); Calcium 9.2 MG/DL (8.5-10.1); Osmolality,Calculated 277.4 MOS/KG (273-304); Total Protein 6.5 G/DL (6.4-8.3)
[2019-06-11] MEDS: POTASSIUM CHLORIDE INJ 20 MEQ in SODIUM CHLORIDE 0.45% 1,000 ML IV SCH (22:12)
[2019-06-11 22:29] LABS: Apearance,Urine Slightly Hazy (Clear); Bilirubin,Urine Negative (Negative); Blood, Urine Negative (Negative); Glucose,Urine (UA) Negative (Negative); Ketones,Urine Negative (Negative); Mucus,Urine Few /LPF (Occasional); Nitrite,Urine Negative (Negative); Protein,Urine Negative; RBC,Urine 3 /HPF (0-4); Squamous Epithelial Cell,Urine Occasional /HPF (0-10); Urine Color Amber (Yellow); Urine Specific Gravity 1.018 (1.001-1.035); Urine Urobilinogen < 2.0 EU/DL (0.2-1.0); WBC,Urine 1 /HPF (0-6)
[2019-06-12 04:40] LABS: Basophils % 0.2 % (0.0-0.8); Eosinophils # 0.1 10*3/uL (0.0-0.87); Eosinophils % 0.5 % (0.00-10.9); Hematocrit 26.8 VOL% (35.7-47.0); Hemoglobin 8.8 GM/DL (12.0-16.0); Immature Granulocytes Absolute 0.13 #; Lymphocytes % 14.7 % (21.3-54.2); Mean Corpuscular HGB Conc 32.8 GM/DL (32-36); Mean Corpuscular Volume 91.5 FL (87-102); Monocytes % 6.2 % (1.7-12.7); Neutrophils % 77.4 % (38.7-73.9); Platelet Count 326 T/CUMM (130-400); Red Blood Count 2.93 MC/CUMM (3.8-5.5); Red Cell Distribution Width 13.2 % (9.3-17.3); White Blood Count 13.6 T/CUMM (4-12)
[2019-06-12 05:02] LABS: Osmolality,Calculated 272.4 MOS/KG (273-304); Risk Ratio 5.32; VLDL CHOLESTEROL 15.2 MG/DL
[2019-06-12 05:09] LABS: Albumin 1.7 G/DL (3.4-5.0); Bilirubin,Total 0.7 MG/DL (0.2-1.0); Osmolality,Calculated 271.4 MOS/KG (273-304); Thyroid Stimulating Hormone 0.84 uIU/ml (0.358-3.74); Total Protein 5.1 G/DL (6.4-8.3)
[2019-06-12] MEDS: POTASSIUM CHLORIDE INJ 20 MEQ in SODIUM CHLORIDE 0.45% 1,000 ML IV SCH (06:11)
[2019-06-12] MEDS ORDERED: MAGNESIUM SULF RIDER 2 GM in PREMIX 1 EACH IV PRN (07:13)
[2019-06-12] MEDS ORDERED: MAGNESIUM SULF RIDER 4 GM in PREMIX 1 EACH IV PRN (07:21)
[2019-06-12] MEDS: PANTOPRAZOLE 40 MG VIAL IV SCH (09:23)
[2019-06-12] MEDS: DILTIAZEM CD 300 MG CAPSULE PO SCH (09:25)
[2019-06-12] MEDS: hydroCHLOROthiazide 12.5 MG CAPSULE PO SCH (09:26)
[2019-06-12] MEDS: MULTIVITAMIN (CENTRUM) TABLET PO SCH (09:26)
[2019-06-12] MEDS: cloNIDine 0.1 MG TABLET PO SCH (09:26)
[2019-06-12] MEDS: NABUMETONE 500 MG TABLET PO SCH ×2 (09:26→21:07)
[2019-06-12] MEDS: HALOPERIDOL 1 MG TABLET PO SCH ×2 (09:26→21:07)
[2019-06-12] MEDS: FLUoxetine 20 MG CAPSULE PO SCH (09:27)
[2019-06-12] MEDS: SODIUM CHLOR 0.45% KCL 20 MEQ 20 MEQ/1,000 ML BAG IV SCH (17:01)
[2019-06-12] MEDS: MAGNESIUM HYDROXIDE SUSP 30 ML UDCUP PO PRN (19:07)
[2019-06-12] MEDS: BENZTROPINE 1 MG TABLET PO SCH (21:07)
[2019-06-13] MEDS: SODIUM CHLOR 0.45% KCL 20 MEQ 20 MEQ/1,000 ML BAG IV SCH ×2 (00:43→10:35)
[2019-06-13 06:02] LABS: Basophils % 0.2 % (0.0-0.8); Eosinophils # 0.1 10*3/uL (0.0-0.87); Eosinophils % 0.6 % (0.00-10.9); Hematocrit 27.4 VOL% (35.7-47.0); Hemoglobin 9.2 GM/DL (12.0-16.0); Immature Granulocytes % 1.5 %; Immature Granulocytes Absolute 0.21 #; Lymphocytes % 14.5 % (21.3-54.2); Mean Corpuscular HGB Conc 33.6 GM/DL (32-36); Mean Corpuscular Volume 91.9 FL (87-102); Mean Platelet Volume 9.8 FL (9.6-12.0); Monocytes % 6.7 % (1.7-12.7); Neutrophils % 76.5 % (38.7-73.9); Platelet Count 353 T/CUMM (130-400); Red Blood Count 2.98 MC/CUMM (3.8-5.5); Red Cell Distribution Width 13.2 % (9.3-17.3); White Blood Count 13.7 T/CUMM (4-12)
[2019-06-13 06:15] LABS: Albumin 1.8 G/DL (3.4-5.0); Bilirubin,Total 0.6 MG/DL (0.2-1.0); Calcium 7.4 MG/DL (8.5-10.1); Total Protein 5.5 G/DL (6.4-8.3)
[2019-06-13] MEDS: DILTIAZEM CD 300 MG CAPSULE PO SCH (09:29)
[2019-06-13] MEDS: FLUoxetine 20 MG CAPSULE PO SCH (09:29)
[2019-06-13] MEDS: PANTOPRAZOLE 40 MG VIAL IV SCH (09:30)
[2019-06-13] MEDS: DEXT 5% NACL 0.45% KCL 20 MEQ 20 MEQ/1,000 ML BAG IV SCH (09:30)
[2019-06-13] MEDS: cloNIDine 0.1 MG TABLET PO SCH (09:30)
[2019-06-13] MEDS: HALOPERIDOL 1 MG TABLET PO SCH ×2 (09:30→22:18)
[2019-06-13] MEDS: NABUMETONE 500 MG TABLET PO SCH ×2 (09:30→22:18)
[2019-06-13] MEDS: MULTIVITAMIN (CENTRUM) TABLET PO SCH (09:30)
[2019-06-13] MEDS: hydroCHLOROthiazide 12.5 MG CAPSULE PO SCH (09:50)
[2019-06-13] MEDS: BENZTROPINE 1 MG TABLET PO SCH (22:18)
[2019-06-14] MEDS: DEXT 5% NACL 0.45% KCL 20 MEQ 20 MEQ/1,000 ML BAG IV SCH (03:10)
[2019-06-14 04:58] LABS: Basophils % 0.2 % (0.0-0.8); Eosinophils # 0.1 10*3/uL (0.0-0.87); Eosinophils % 0.8 % (0.00-10.9); Hematocrit 28.4 VOL% (35.7-47.0); Hemoglobin 9.7 GM/DL (12.0-16.0); Immature Granulocytes % 1.4 %; Immature Granulocytes Absolute 0.22 #; Lymphocytes # 1.4 10*3/uL (1.4-4.0); Mean Corpuscular HGB Conc 34.2 GM/DL (32-36); Mean Corpuscular Volume 89.3 FL (87-102); Mean Platelet Volume 9.9 FL (9.6-12.0); Monocytes % 6.6 % (1.7-12.7); Platelet Count 429 T/CUMM (130-400); Red Blood Count 3.18 MC/CUMM (3.8-5.5); White Blood Count 15.7 T/CUMM (4-12)
[2019-06-14] MEDS ORDERED: HALOPERIDOL 5 MG/ML AMP IV PRN (08:05)
[2019-06-14] MEDS: HALOPERIDOL 5 MG/ML AMP IM PRN ×2 (09:14→15:36)
[2019-06-14] MEDS: MULTIVITAMIN (CENTRUM) TABLET PO SCH (09:17)
[2019-06-14] MEDS: FLUoxetine 20 MG CAPSULE PO SCH (09:17)
[2019-06-14] MEDS: DILTIAZEM CD 300 MG CAPSULE PO SCH (09:17)
[2019-06-14] MEDS: hydroCHLOROthiazide 12.5 MG CAPSULE PO SCH (09:18)
[2019-06-14] MEDS: PANTOPRAZOLE 40 MG VIAL IV SCH (09:18)
[2019-06-14] MEDS: cloNIDine 0.1 MG TABLET PO SCH (09:18)
[2019-06-14] MEDS: NABUMETONE 500 MG TABLET PO SCH ×2 (09:22→20:31)
[2019-06-14] MEDS: HALOPERIDOL 1 MG TABLET PO SCH ×2 (10:44→20:31)
[2019-06-14] MEDS: BENZTROPINE 1 MG TABLET PO SCH (20:32)
[2019-06-15] MEDS: DEXT 5% NACL 0.45% KCL 20 MEQ 20 MEQ/1,000 ML BAG IV SCH (00:03)
[2019-06-15] MEDS: PANTOPRAZOLE 40 MG VIAL IV SCH (09:38)
[2019-06-15] MEDS: MULTIVITAMIN (CENTRUM) TABLET PO SCH (09:38)
[2019-06-15] MEDS: NABUMETONE 500 MG TABLET PO SCH (09:38)
[2019-06-15] MEDS: FLUoxetine 20 MG CAPSULE PO SCH (09:38)
[2019-06-15] MEDS: cloNIDine 0.1 MG TABLET PO SCH (09:38)
[2019-06-15] MEDS: HALOPERIDOL 1 MG TABLET PO SCH (09:38)
[2019-06-15] MEDS: hydroCHLOROthiazide 12.5 MG CAPSULE PO SCH (09:39)
[2019-06-15] MEDS: DILTIAZEM CD 300 MG CAPSULE PO SCH (09:39)
[2019-06-15] MEDS: MAGNESIUM HYDROXIDE SUSP 30 ML UDCUP PO PRN (10:45)
[2019-06-15 11:40] VITALS: BP 107/45
== END 2019-06-15 15:40 | DRG 389 ==
LOC: N.2E 18:24
PROVIDERS: ADMIT Family Medicine; ATTEND Family Medicine